=== PATIENT | female | born 1945 | race Caucasian/White ===

== ENCOUNTER 2017-01-18 20:38 | Emergency (ER) | payer OTHER ==
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
== END 2017-01-18 21:15 | disposition home or self-care (01) ==
LOC: ER 20:38
DX: S00.03XA Contusion of scalp, initial encounter (principal); V43.52XA Car driver injured in collision with other type car in traffic accident, initial encounter